=== PATIENT | female | born 1990 | race Caucasian/White ===

== ENCOUNTER 2018-11-09 21:49 | Inpatient (IN) | payer BC, OTHER ==
[~2018-11-09] VITALS: Ht 162.6 cm; Wt 120.2 kg
--- NOTE | ~2018-11-09 | HC ---
[facility] [place] [address] CONSULTATION Name: YANDEL DAVIS Room #: 458-P [facility] IN M.R.#: [id number] Admission: 11/10/18 Attend Phys: Aaron Reyes MD Discharge: 11/11/18 Date of : 89 Report #: [id number] THIS REPORT FOR: //name// CC: Aaron BEANNER ROBB DATE OF SERVICE: 11/10/2018 HISTORY OF PRESENT ILLNESS: This is a 28-year-old female patient who indicates that she has seizures since childhood. She goes to a neurologist at [facility] and she is on Keppra. I do not have any records from there. 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 She is complaining of some symptoms, which are pretty unusual. She indicates that these symptoms are new. She complains of some syncope and unable to move. She is able to comprehend, but not able to talk. She had some dizziness. She feels tired after these episodes. She said she cannot move, but she is fully conscious. REVIEW OF SYSTEMS: Positive for cardiac symptoms. She is already being worked up by Cardiology. She indicates she has bipolar disorder. She is on Depakote, that is from her psychiatrist. That was her relevant 14-point review of system. PAST MEDICAL HISTORY: Positive for seizure and I am not sure whether they are all seizures or pseudoseizure because I do not have a record. FAMILY HISTORY: Unremarkable. SOCIAL HISTORY: She does not smoke or drink any alcohol. PHYSICAL EXAMINATION: Indicates that she is alert, responsive, able to follow simple commands. Her higher function looks unremarkable. Cranial nerve examination 2-12 looks unremarkable. She moves all 4 extremities. There is no meningeal sign. There is no papilledema. Cardiac examination is unremarkable. No respiratory difficulty. Blood pressure is 138/71, respirations 16, pulse is 93, temperature is 98.5. It looks like her cardiac workup was mostly unremarkable. She does have slightly increased TSH. She has a slightly increased white count. IMPRESSION: Clinically, these episodes do not appear to be seizures or transient ischemic attack. I did an EEG. I do not see any epileptiform activity. I discussed with her that we cannot do any further testing like video monitored EEG and I do not know what she had done. History is poorly defined and she said some of the symptoms are new. It would appear that the symptom may be psychological, but I think it will be desirable to do an MRI just to make sure there is no etiology and I will also repeat her WBC count tomorrow. I do [facility] [address] [place] [address] CONSULTATION Name: YANDEL DAVIS Room #: 458-P [facility] M.R.#: [id number] Admission: 11/10/18 Attend Phys: Aaron Reyes MD Discharge: 11/11/18 Date of : [birth year] Report #: [id number] not know why it was trace high. RECOMMENDATION: I discussed her options with the patient. I saw her this morning as well as I saw her this evening. I told her that she is already on 2 anticonvulsants and she needs to talk to her own neurologist about her seizure medication. I did ask her to take seizure precautions in the meantime and not drive. I will get an MRI and MRA done tomorrow because of symptoms being new, but there is a good possibility that the symptoms may be psychological if no cardiac cause is there. I will defer further cardiac evaluation to cardiology, but neurologically, I will suggest completing the workup by doing an MRI and then, the patient should follow up with her neurologist as an outpatient. A total of 50 minutes of time was spent taking care of this patient and majority of that time was spent counseling the patient, reviewing her data and coordinating her care by talking to other health career guidance technician including morning nurses. Thank you very much for this referral. <ELECTRONICALLY SIGNED> By: Leeroy Soria MD 11/14/18 1446 08 [id number] Leeroy Soria MD /nt
--- NOTE | ~2018-11-09 | EEG ---
[facility] [place] [address] ELECTROENCEPHALOGRAM Name: YANDEL DAVIS Room #: 458-P [facility] IN M.R.#: [id number] Admission: 11/10/18 Attend Phys: Aaron Reyes MD Discharge: 11/11/18 Date of : [birth year] Report #: [id number] THIS REPORT FOR: //name// [facility] DATE OF SERVICE: 11/10/2018 This patient is being evaluated for the possibility of seizure. EEG was done by placing the electrode by standard 10-20 system of electrode placement. Background activity in this patient is 11 Hz and 40 microvolt. The patient became drowsy and that was associated with bilateral slowing and vertex sharp waves. Photic stimulation and hyperventilation is unremarkable. Throughout the record, no active epileptiform activity was noticed. IMPRESSION: This patient's EEG is within normal limit. Thank you very much for this referral. <ELECTRONICALLY SIGNED> By: Leeroy Soria MD 11/14/18 1447 [id number] Leeroy Soria MD /nt
--- NOTE | ~2018-11-09 | 2DMMODE ---
[facility] [address] [place] [address] 2 D/M-MODE ECHOCARDIOGRAM Name: YANDEL DAVIS Room #: 458-P ADM IN M.R.#: [id number] Admission: 11/10/18 Attend Phys: Aaron Reyes MD Discharge: Date of : 89 Date of Service: 11/10/18 1153 Report #: [id number] THIS REPORT FOR: //name// APPROVED REPORT Study performed: 11/10/2018 10:33:27 EXAM: Comprehensive 2D, Doppler, and color-flow Echocardiogram Patient Location: Echo lab Room #: [facility] Status: routine BSA: 2.20 HR: 71 bpm BP: 118/61 mmHg Rhythm: NSR Other Information Study Quality: AdequateTechnically Difficult Indications Syncope Tachycardia 2D Dimensions RVDd: 25.14 mm IVSd: 8.72 (7-11mm) LVOT Diam: 19.68 (18-24mm) LVDd: 50.88 mm PWd: 8.68 (7-11mm) Ascending Ao: 25.44 (22-36mm) LVDs: 35.79 (25-40mm) Aortic Root: 22.43 mm Volumes Left Atrial Volume (Systole) Single Plane 4CH: 52.81 mL Single Plane 2CH: 35.92 mL LA ESV Index: 23.00 mL/m2 Aortic Valve AoV Peak Travis.: 1.41 m/s AO Peak Gr.: 7.99 mmHg LVOT Max P.46 mmHg LVOT Max V: 1.06 m/s SAL Vmax: 2.27 cm2 Mitral Valve E/A Ratio: 1.3 MV Decel. Time: 212.44 ms [facility] [address] [place] [address] 2 D/M-MODE ECHOCARDIOGRAM Name: YANDEL DAVIS Room #: 458-P [facility] IN [facility]#: [id number] Admission: 11/10/18 Attend Phys: Aaron Reyes MD Discharge: Date of : 89 Date of Service: 11/10/18 1153 Report #: [id number] MV E Max Travis.: 0.88 m/s MV A Travis.: 0.70 m/s MV PHT: 61.61 ms IVRT: 78.43 ms Pulmonary Valve PV Peak Travis.: 1.02 m/s PV Peak Gr.: 4.14 mmHg Pulmonary Vein P Vein S: 0.63 m/s P Vein A: 0.25 m/s P Vein D: 0.61 m/s P Vein A Dur.: 124.6 msec P Vein S/D Ratio: 1.03 Left Ventricle The left ventricle is normal size. There is normal LV segmental wall motion. There is normal left ventricular wall thickness. Left ventricular systolic function is normal. The left ventricular ejection fraction is within the normal range. LVEF is 55-60%. The left ventricular diastolic function is normal. Right Ventricle The right ventricle is normal size. The right ventricular systolic function is normal. Atria The left atrium size is normal. The right atrium size is normal. Aortic Valve The aortic valve is normal in structure. No aortic regurgitation is present. There is no aortic valvular stenosis. Mitral Valve The mitral valve is normal in structure. There is no mitral valve regurgitation noted. No evidence of mitral valve stenosis. Tricuspid Valve The tricuspid valve is normal in structure. There is no tricuspid valve regurgitation noted. Pulmonic Valve The pulmonary valve is normal in structure. There is no pulmonic valvular regurgitation. Great Vessels The aortic root is normal in size. The inferior vena cava is not well [address] [address] 2 D/M-MODE ECHOCARDIOGRAM Name: ADAM DAVISY Room #: 458-P [facility] IN .R.#: [id number] Admission: 11/10/18 Attend Phys: Aaron Reyes MD Discharge: Date of : 89 Date of Service: 11/10/18 1153 Report #: [id number] visualized. Pericardium There is no pericardial effusion. <Conclusion> The left ventricle is normal size. LVEF is 55-60%. The right ventricle is normal size. The right ventricular systolic function is normal. The aortic valve is normal in structure. The mitral valve is normal in structure. The tricuspid valve is normal in structure. The pulmonary valve is normal in structure. There is no pericardial effusion. <ELECTRONICALLY SIGNED> By: Donovan Coffey MD 11/10/18 1153 1153 1153 Donovan Coffey MD /INF
--- NOTE | ~2018-11-09 | EKG ---
[address] [address] ELECTROCARDIOGRAM REPORT Name: YANDEL DAVIS Room #: 458-P [facility] M.R.#: [id number] Admission: 11/10/18 Attend Phys: Aaron Reyes MD Discharge: Date of : 89 Report #: [id number] THIS REPORT FOR: //name// [facility] [place] [facility] ED Test Date: 2018-11-09 Test Time: 21:56:11 Pat Name: YANDEL DAVIS Department: Room: [facility] Gender: F Civil Engineering Specialist: JARVIS : 1990 Requested By: Winston Gerco Order Number: [id number] MD: Pedro Mark Measurements Intervals [place] Rate: 89 P: 34 AL: 140 QRS: 52 QRSD: 99 T: 18 QT: 351 QTc: 428 Interpretive Statements Sinus rhythm Borderline ST segment abnormalities No previous ECG available for comparison Electronically Signed On 11-10-2018 9:17:43 CITY DISPATCH SUPERVISOR by Pedro Mark [email or web address] <ELECTRONICALLY SIGNED> By: Pedro Mark MD 11/10/18 0917 [id number] Pedro Mark MD /EPI
[2018-11-09 21:52] VITALS: BP 137/86
[2018-11-09] MEDS ORDERED: PROZAC20 MG PO (21:59)
[2018-11-09] MEDS ORDERED: DEPAKOTE ER500 MG PO (22:00)
[2018-11-09] MEDS ORDERED: KEPPRA750 MG PO (22:00)
[2018-11-09] MEDS ORDERED: VITAMIN D1000 UNI1 PO (22:00)
[2018-11-09 22:33] LABS: ABSOLUTE NEUTROPHILS 7.2 thou/uL (1.4-8.2); BASOPHILS 0.6 % (0.0-2.0); EOSINOPHILS 2.8 % (0.0-3.0); HEMATOCRIT 39.4 % (37.0-47.0); HEMOGLOBIN 13.1 gm/dL (12.0-15.0); LYMPHOCYTES 35.6 % (24.0-44.0); MCH 27.9 pg (26.0-34.0); MCHC 33.2 g/dL (28.0-37.0); MONOCYTES 5.4 % (1.0-8.0); PLATELET COUNT 295 thou/uL (150-400); POLYS 55.6 % (36.0-66.0); RDW 14.6 % (10.5-14.5)
[2018-11-09 22:38] LABS: ANION GAP 6 mmol/L (7-16); BUN 13 mg/dL (7-18); CALCIUM 8.8 mg/dL (8.5-10.1); CHLORIDE 106 mmol/L (98-107); CO2 25 mmol/L (21-32); CREATININE 0.7 mg/dL (0.6-1.0); GLUCOSE 131 mg/dL (74-106); POTASSIUM 5.2 mmol/L (3.5-5.1); SODIUM 137 mmol/L (136-145)
[2018-11-09 22:46] LABS: SGOT 34 U/L (15-37); SGPT 42 U/L (30-65); TOTAL BILIRUBIN 0.3 mg/dL (<0.1-1.0); TOTAL PROTEIN 7.2 g/dL (6.4-8.2); TROPONIN-I <0.06 ng/mL (<0.06)
[2018-11-10] VITALS (8 sets, daily range): BP systolic 118–147; BP diastolic 61–91
[2018-11-10] MEDS ORDERED: ASHLYNA 0.15-01 EACH PO (01:47)
[2018-11-10 12:52] LABS: CALCIUM 8.8 mg/dL (8.5-10.1); CREATININE 0.8 mg/dL (0.6-1.0); POTASSIUM 4.4 mmol/L (3.5-5.1)
[2018-11-11 06:10] VITALS: BP 130/67
[2018-11-11 06:29] LABS: ABSOLUTE NEUTROPHILS 6.3 thou/uL (1.4-8.2); BASOPHILS 0.4 % (0.0-2.0); EOSINOPHILS 2.6 % (0.0-3.0); HEMATOCRIT 39.3 % (37.0-47.0); LYMPHOCYTES 31.1 % (24.0-44.0); MCH 27.9 pg (26.0-34.0); MCHC 33.2 g/dL (28.0-37.0); MCV 84.1 fL (80.0-100.0); MONOCYTES 4.8 % (1.0-8.0); PLATELET COUNT 259 thou/uL (150-400); POLYS 61.1 % (36.0-66.0); RBC 4.68 mil/uL (4.20-5.00); RDW 14.2 % (10.5-14.5); WBC 10.2 thou/uL (4.0-11.0)
[2018-11-11 06:39] LABS: CALCIUM 8.7 mg/dL (8.5-10.1); CREATININE 0.8 mg/dL (0.6-1.0); POTASSIUM 4.1 mmol/L (3.5-5.1)
[2018-11-11] MEDS ORDERED: MECLIZINE HCL12.5 MG PO (12:27)
[2018-11-11 14:30] VITALS: BP 130/67
[2018-11-11] MEDS ORDERED: NOTE (14:40)
== END 2018-11-11 15:07 | disposition home or self-care (01) | DRG 312 ==
LOC: ER 21:49 → EROBS 11-10 00:24 → 4W 11-10 00:24
PROVIDERS: Emergency Medicine; Hospitalist
DX: R55 Syncope and collapse (principal); Z68.42 Body mass index [BMI] 45.0-49.9, adult; G40.909 Epilepsy, unspecified, not intractable, without status epilepticus; F31.9 Bipolar disorder, unspecified; E66.9 Obesity, unspecified; R00.0 Tachycardia, unspecified; E87.5 Hyperkalemia; R73.9 Hyperglycemia, unspecified; Z90.49 Acquired absence of other specified parts of digestive tract; Z79.899 Other long term (current) drug therapy; Z88.8 Allergy status to other drugs, medicaments and biological substances; Z91.040 Latex allergy status; Z84.1 Family history of disorders of kidney and ureter; Z82.49 Family history of ischemic heart disease and other diseases of the circulatory system
CPT/HCPCS: 10045

== ENCOUNTER 2019-10-17 12:45 | Emergency (ER) | payer BC, OTHER ==
[~2019-10-17] VITALS: Ht 162.6 cm; Wt 117.9 kg
[~2019-10-17 12:45] MED LIST: ASHLYNA 0.15-01 EACH PO; DEPAKOTE ER500 MG PO; KEPPRA750 MG PO; MECLIZINE HCL12.5 MG PO; NOTE; PROZAC20 MG PO; VITAMIN D1000 UNI1 PO
[2019-10-17] MEDS ORDERED: LORAZEPAM 1 MG T1 MG PO (13:02)
[2019-10-17] MEDS ORDERED: PROAIR HFA8.5 GM INH (13:03)
[2019-10-17 14:27] LABS: URINE BILIRUBIN NEGATIVE (Negative); URINE BLOOD NEGATIVE (Negative); URINE CLARITY CLEAR; URINE COLOR YELLOW; URINE GLUCOSE-RANDOM* NEGATIVE (Negative); URINE KETONES NEGATIVE (Negative); URINE LEUKOCYTES-REFLEX NEGATIVE (Negative); URINE NITRITE-REFLEX NEGATIVE (Negative); URINE PROTEIN (DIPSTICK) NEGATIVE (Negative); URINE SPECIFIC GRAVITY 1.015 (1.005-1.035); URINE UROBILINOGEN 0.2 E.U./dl (0.2-1.0)
--- NOTE | 2019-10-17 16:50 | EKG ---
[place] [address] [facility] [place] [address] ELECTROCARDIOGRAM REPORT Name: SUSANYANDEL NASCIMENTO [id number] Admission: 10/17/19 Attend Phys: Discharge: Date of : 89 Report #: [id number] THIS REPORT FOR: //name// [facility] ED Test Date: 2019-10-17 Test Time: 14:35:34 Pat Name: YANDEL DAVIS Department: Room: Gender: F Gas Main Fitter: WG : 1990 Requested By: Karl Fry Order Number: [id number] MD: Leoncio Daniel Measurements Intervals [place] Rate: 68 P: 27 PA: 166 QRS: 26 QRSD: 108 T: 81 QT: 395 QTc: 421 Interpretive Statements Sinus rhythm Compared to ECG 11/09/2018 21:56:11 No significant changes Electronically Signed On 10-17-2019 16:49:59 PASSENGER REPRESENTATIVE by Leoncio Daniel [email or web address] <ELECTRONICALLY SIGNED> By: Leoncio Daniel MD 10/17/19 1649 1435 1435 Leoncio Daniel MD /HORACE
[2019-10-17 17:04] VITALS: BP 138/86
== END 2019-10-17 17:05 | disposition home or self-care (01) ==
LOC: ER 12:45
PROVIDERS: Emergency Medicine
DX: H53.8 Other visual disturbances (principal); R41.0 Disorientation, unspecified; F31.9 Bipolar disorder, unspecified; Z91.040 Latex allergy status; Z88.8 Allergy status to other drugs, medicaments and biological substances; Z90.49 Acquired absence of other specified parts of digestive tract

== ENCOUNTER 2020-01-21 17:40 | Emergency (ER) | payer OTHER, BC ==
[~2020-01-21] VITALS: Ht 162.6 cm; Wt 117.9 kg
[~2020-01-21 17:40] MED LIST changes: +LORAZEPAM 1 MG T1 MG PO; +PROAIR HFA8.5 GM INH
[2020-01-21] MEDS ORDERED: SUPER THERAVIT1 EACH PO (17:57)
[2020-01-21 18:23] VITALS: BP 133/82
== END 2020-01-21 18:23 | disposition home or self-care (01) ==
LOC: ER 17:40
DX: R56.9 Unspecified convulsions (principal); F31.9 Bipolar disorder, unspecified; Z90.49 Acquired absence of other specified parts of digestive tract; Z91.040 Latex allergy status; Z88.8 Allergy status to other drugs, medicaments and biological substances